=== PATIENT | female | born 1970 | race Caucasian/White ===

== ENCOUNTER 2017-02-17 01:57 | Day surgery (SDC) | payer OTHER ==
[~2017-02-17] VITALS: Ht 170.2 cm; Wt 67.7 kg
[2017-02-17 02:18] LABS: MCH 29.6 PG (29.0-34.0); MCHC 35.1 G/DL (30.0-36.0); MCV 84.4 FL (83-99); MEAN PLAT.VOLUME 10.7 uM^3 (9.5-12.4); PLATELET COUNT 241 K/uL (156-360); RBC DIS.WIDTH-CV 11.3 % (11.8-14.6); RBC DIS.WIDTH-SD 34.9 % (39-53); RED BLOOD COUNT 4.86 M/uL (3.80-5.20); WHITE BLOOD COUNT 11.3 K/uL (4.1-10.2)
[2017-02-17 02:37] LABS: CHLORIDE 100 mEq/L (99-109); POTASSIUM 3.1 mEq/L (3.7-5.4); SODIUM 138 mEq/L (136-147)
[2017-02-17 02:39] LABS: GLUCOSE 130 mg/dL (70-99)
[2017-02-17 02:40] LABS: ANION GAP 12 MEQ/L (2-14)
[2017-02-17 02:41] LABS: TOTAL BILIRUBIN 0.9 mg/dL (0.0-1.0)
[2017-02-17 02:42] LABS: ALKALINE PHOSPHATASE 64 IU/L (3-129)
[2017-02-17 02:43] LABS: GFR ESTIMATE (CALCULATED) > 59 mL/min/
[2017-02-17 02:44] LABS: UREA NITROGEN (BUN) 20 mg/dL (9-23)
[2017-02-17 02:53] LABS: QUANTITATIVE HCG < 4.0 MIU/ML
[2017-02-17 03:39] LABS: LIPASE 17 U/L (1.0-51.0)
[2017-02-17 12:46] VITALS: BP 127/67
[2017-02-17 15:40] VITALS: BP 119/69
[2017-02-17 19:00] VITALS: BP 137/79
[2017-02-17 23:30] VITALS: BP 126/67
[2017-02-18 02:58] VITALS: BP 114/68
[2017-02-18 07:20] LABS: HEMATOCRIT 34.7 % (36.0-46.0); MCH 30.1 PG (29.0-34.0); MCV 88.5 FL (83-99); MEAN PLAT.VOLUME 11.5 uM^3 (9.5-12.4); PLATELET COUNT 171 K/uL (156-360); RBC DIS.WIDTH-SD 38.5 % (39-53); RED BLOOD COUNT 3.92 M/uL (3.80-5.20); WHITE BLOOD COUNT 6.5 K/uL (4.1-10.2)
[2017-02-18 08:24] VITALS: BP 133/68
[2017-02-18 08:27] LABS: CHLORIDE 109 mEq/L (99-109); SODIUM 142 mEq/L (136-147)
[2017-02-18 08:29] LABS: GLUCOSE 98 mg/dL (70-99); POTASSIUM 3.9 mEq/L (3.7-5.4)
[2017-02-18 08:30] LABS: ANION GAP 8 MEQ/L (2-14)
[2017-02-18 08:33] LABS: GFR ESTIMATE (CALCULATED) > 59 mL/min/
[2017-02-18 08:34] LABS: UREA NITROGEN (BUN) 9 mg/dL (9-23)
[2017-02-18] MEDS ORDERED: HYDROCHLOROTHIA25 MG PO (10:43)
[2017-02-18] MEDS ORDERED: DILTIAZEM 24HR240 MG PO (10:44)
[2017-02-18 10:51] VITALS: BP 137/77
[2017-02-18 16:00] VITALS: BP 121/65; BP 136/81; BP 139/80
[2017-02-18] MEDS ORDERED: HYDROCODON-ACE1 EAC7 PO (17:04)
== END 2017-02-18 18:22 | disposition home or self-care (01) ==
LOC: EME 01:57 → SDC 07:31 → 2SOUTH 08:32 → 2EAST 08:32 → 2SOUTH 08:32 → 2EAST 12:45
PROVIDERS: Surgery
PROC: 0DTJ4ZZ Resection of Appendix, Percutaneous Endoscopic Approach (ICD-10-PCS; principal; 2017-02-17)
DX: K35.80 Unspecified acute appendicitis (principal); D25.9 Leiomyoma of uterus, unspecified; N80.0 Endometriosis of uterus; E87.6 Hypokalemia; K59.00 Constipation, unspecified; R11.0 Nausea; I10 Essential (primary) hypertension; Z80.0 Family history of malignant neoplasm of digestive organs
CPT/HCPCS: 74177; 80048; 80053; 81003; 83690; 84702; 85027; 88304; 93005; 99281; 99284; G0378; J0330; J1100; J1170; J1885; J2270; J2405; J2710; J2765; J3010; J7030